=== PATIENT | male | born 1955 | race Caucasian/White ===

== ENCOUNTER 2018-12-15 06:33 | Day surgery (SDC) | payer BC ==
[2018-12-10 10:10] VITALS: BMI 37.5
[2018-12-15] MEDS ORDERED: ERYTHROMYCIN 0.5% OPHTHALMIC OINTMENT 3.5 GM TUBE ONE (07:10)
[2018-12-15] MEDS ORDERED: TETRACAINE 0.5% OPHTH SOLN 2 ML BOTTLE ONE (07:11)
[2018-12-15] MEDS ORDERED: LIDOCAINE 1%/EPI 1:100000 (20 ML MULTI DOSE VIAL) ONE (07:11)
[2018-12-15] MEDS ORDERED: BUPIVACAINE HCL/PF 0.5% (5MG/ML) 10 ML VIAL ONE (07:11)
[2018-12-15] MEDS ORDERED: POVIDONE-IODINE 5% OPHTHALMIC PREP 30 ML SOLUTION ONE (07:23)
[2018-12-15] MEDS ORDERED: MIDAZOLAM HCL 2 MG/2 ML SINGLE DOSE VIAL ONE (08:18)
[2018-12-15] MEDS ORDERED: PROPOFOL 20 ML ONE ×2 (08:29→08:32)
[2018-12-15] MEDS ORDERED: ceFAZolin SODIUM 1 GM VIAL ONE (08:39)
[2018-12-15] MEDS ORDERED: ONDANSETRON 4 MG/2 ML VIAL ONE (09:01)
[2018-12-15] MEDS ORDERED: DEXAMETHASONE SOD PHOSPHATE 4 MG/1 ML VIAL ONE (09:01)
[2018-12-15 10:25] VITALS: TEMP 98.2
[2018-12-15 10:40] VITALS: BP 120/74; PULSE 56
--- NOTE | 2018-12-15 13:31 | OP ---
DATE OF OPERATION: 12/15/2018 PREOPERATIVE DIAGNOSIS: Orbital tumor, left. POSTOPERATIVE DIAGNOSIS: Orbital tumor, left. PROCEDURE: Transconjunctival orbitotomy with excision of mass lesion, superotemporal fornix, left. SURGEON: Corie Weiss MD ANESTHESIA: Local with sedation. COMPLICATIONS: None. ESTIMATED BLOOD LOSS: Less than 1 mL. OPERATIVE REPORT: The patient was brought to the operating room, placed in the operating room table, vital signs were monitored by Anesthesia. Tetracaine was placed in both eyes. Timeout was performed. Intravenous sedation was administered and then a 50/50 mixture of 2% Xylocaine and 1:100,000 epinephrine and 0.5% Marcaine was injected subconjunctivally for a total of 1 mL in the superotemporal fornix overlying the mass. The patient was prepped and draped in the usual sterile fashion, exposing both eyes. The right eye was taped closed with a Steri-Strip. Speculum was placed in the left eye. An incision was made through conjunctiva and Tenon and the superotemporal fornix, more angling toward the lateral canthus, exposing the mass. The mass was then dissected free of overlying fibrous tissue and teased out of the orbit and removed in one whole piece of tissue and submitted for pathologic study. Hemostasis was meticulously obtained with Cabarrus needle and the wound was then closed in both Tenons and conjunctiva with 2 buried 7-0 Vicryl sutures in the superotemporal fornix. Erythromycin ointment was placed in the eye, the speculum was removed, and the patient was taken to recovery room in stable condition. CORIE WEISS M.D. [facility]/[id number]
--- NOTE | 2018-12-17 13:20 | PATH ---
Surgical Pathology Report Patient Name: TIGRE ERNANDEZ Med. Rec. #: [id number] /Age/Gender: 1955 (Age: 63) / M Account: [id number] Location: [facility] Taken: 12/15/2018 Received: 12/15/2018 Reported: 12/17/2018 Physicians: Stephen Sierra Specimen(s) Received MASS LEFT EYE Clinical History Mass left eye Final Diagnosis MASS, LEFT EYE, EXCISION: ADIPOSE TISSUE, COMPATIBLE WITH LIPOMA. Electronically Signed Pita Gurrola M.D. Gross Description Received in formalin, labeled, "mass, left eye" is a 1.8 x 1 x 0.3 cm portion of yellow-gr lobulated soft tissue. The specimen is inked black, sectioned and entirely submitted in one cassette. AE/12/16/2018 ebram/12/16/2018
== END 2018-12-15 10:44 | disposition home or self-care (01) ==
LOC: FASU 06:33
PROVIDERS: ATTEND Ophthalmology
PROC: 0NBQ0ZZ Excision of Left Orbit, Open Approach (ICD-10-PCS; principal; 2018-12-15 08:42)
DX: D31.62 Benign neoplasm of unspecified site of left orbit (principal)
CPT/HCPCS: 82962; 88304-TC; 94760

== ENCOUNTER 2019-06-18 22:45 | Emergency (ER) | payer BC ==
[2019-06-18 22:54] VITALS: BP 166/86; PULSE 104; TEMP 98.9; BMI 37.8
[2019-06-18] MEDS ORDERED: VANCOMYCIN 1 GM in D5W (PRE-DOCKED) 1,000 MG/250 ML IVPB ONE (22:55)
[2019-06-18] MEDS ORDERED: PIPERACILLIN/TAZOB 3.375 GM 3.375 GM in DEXTROSE 5%-WATER - 50 ML IVPB ONE (22:56)
--- NOTE | 2019-06-18 23:05 | PDOC ---
Documentation entered by Rosas Lopez SCRIBE, acting as scribe for Orlin Johnson MD. Orlin Johnson MD: This documentation has been prepared by the John waggoner Nirvannie, SCRIBE, under my direction and personally reviewed by me in its entirety. I confirm that the documentation accurately reflects all work, treatment, procedures, and medical decision making performed by me. History of Present Illness - General Chief Complaint: Wound Stated Complaint: CELLULITIS Time Seen by Provider: 06/18/19 22:47 History Source: Patient Exam Limitations: No Limitations - History of Present Illness Initial Comments: 06/18/19 23:02 HPI: The patient is a 63 year old male, with a significant past medical history of diabetes, hypertension, and hyperlipidemia, who presents to the emergency department with 4 days of a rash to the right hand and new onset hives to the back. As per patient, he initially went to urgent care 4 days ago for a rash to the right hand and wrist at which time he was prescribed antibiotics ( noncompliant secondary to pharmacy being closed). Patient notes to have gone to his PCP for a general physical examination at which time he was placed on Bactrim. Patient notes taking his first dosage 3 days ago and has been compliant since. He notes going to urgent care once again yesterday at which time the provider demarcated the rash and was advised to report to the ED if the rash extended outside the boundaries. Patient notes his rash has worsened minimally and he began to notice hives to his back and upper buttocks, prompting his arrival to the ED. He denies any changes in strength or sensation to the arm or hand. He denies any discharge from the rash. He denies any recent fevers, chills, headache or dizziness. He denies any recent nausea, vomit, diarrhea or constipation. He denies any recent chest pain or shortness of breath. He denies any recent dysuria, frequency, urgency or hematuria. PAST MEDICAL HISTORY: Diabetes, hypertension, hyperlipidemia. PAST SURGICAL HISTORY: no significant history FAMILY HISTORY: no pertinent history SOCIAL HISTORY: Pt lives with family and is employed. MEDICATIONS: reviewed ALLERGIES: As per nursing notes ROS: General: No fevers or chills, no weakness, no weight loss HEENT: No change in vision. No sore throat,. No ear pain CardioVascular: No chest pain or shortness of breath Respiratory:No cough, or wheezing. Gastrointestinal: no nausea, vomiting, diarrhea or constipation, No rectal bleeding Genitourinary: No dysuria, hematuria, or frequency Musculoskeletal: No joint or muscle pain or swelling Neurologic: No headache, vertigo, dizziness or loss of consciousness Psychiatric: nor depression Skin: +Rash to the right hand. No easy bruising Endocrine: no increased thirst or abnormal weight change Allergic: +Hives to the back. no latex allergy All other systems reviewed and normal Physical Exam: GENERAL: The patient is awake, alert, and fully oriented, in no acute distress. HEAD: Normal with no signs of trauma. EYES: Pupils equal, round and reactive to light, extraocular movements intact, sclera anicteric, conjunctiva clear. EXTREMITIES: Normal range of motion, no edema. NEUROLOGICAL: Normal speech, normal gait. PSYCH: Normal mood, normal affect. SKIN: +Mild swelling of the right wrist and hand with mild erythema on the dorsum of the hand and fingers. Hives to the back. Warm, Dry, normal turgor, lesions noted. Assessment and plan: This is a 63-year-old male who has history of type 2 diabetes who comes in complaining of cellulitis to his right hand and wrist. Patient was seen by his primary care doctor as well as in an urgent care center. Patient thinks it may be getting worse so he comes in for evaluation. Work-up initiated including CBC, comp, blood cultures and IV antibiotics including Vanco and Zosyn. Patient was started on Bactrim by his primary care doctor but now has what appears to be an allergic reaction to the Bactrim. 01:00 patient complaining that the itching is worse from the hives. On reevaluation the hives do not look significantly worse. However I will give some Solu-Medrol 125 IV push for the hives in addition to some Benadryl 06/19/19 01:02 Past History - Past Medical History Allergies/Adverse Reactions: Allergies Allergy/AdvReac Type Severity Reaction Status Date / Time sulfamethoxazole Allergy Verified 06/19/19 01:10 [From Bactrim] trimethoprim [From Bactrim] Allergy Verified 06/19/19 01:10 Home Medications: Ambulatory Orders Amphet Asp/Amphet/D-Amphet [Adderall 20 Mg Tablet] 20 mg PO BID PRN tablet Aspirin 81 mg PO DAILY 02/09/14 Zolpidem Tartrate [Ambien] 10 mg PO HS tablet 02/09/14 Atenolol [Tenormin -] 25 mg PO HS 12/10/18 Lorazepam [Ativan] 1 mg PO DAILY PRN 12/10/18 Losartan/Hydrochlorothiazide [Losartan-Hctz 100-12.5 mg Tab] 1 each PO DAILY Metformin HCl [Glucophage] 1,000 mg PO BID 12/10/18 Doxycycline Hyclate [Doryx] 200 mg PO BID #20 tablet. 06/18/19 Methylprednisolone [Medrol Dose Francisco] 4 mg PO ASDIR #21 tablet 06/19/19 Anemia: No Asthma: No Cancer: No Cardiac Disorders: No CVA: No COPD: No CHF: No Dementia: No Diabetes: Yes GI Disorders: No Disorders: No HTN: Yes Hypercholesterolemia: Yes Liver Disease: No Seizures: No Thyroid Disease: No - Psycho Social/Smoking Cessation Hx Smoking History: Unknown if ever smoked Have you smoked in the past 12 months: No Information on smoking cessation initiated: No Hx Alcohol Use: Yes (social) Drug/Substance Use Hx: No Substance Use Type: Alcohol Hx Substance Use Treatment: No *Physical Exam - Vital Signs Last Vital Signs Temp Pulse Resp BP Pulse Ox 98.9 F 104 H 18 166/86 98 06/18/19 22:49 06/18/19 22:49 06/18/19 22:49 06/18/19 22:49 06/18/19 22:49 ED Treatment Course - LABORATORY CBC & Chemistry Diagram: 06/18/19 22:55 06/18/19 22:55 Discharge - Discharge Information Problems reviewed: Yes Clinical Impression/Diagnosis: Cellulitis Qualifiers: Site of cellulitis: extremity Site of cellulitis of extremity: upper extremity Laterality: right Qualified Code(s): L03.113 - Cellulitis of right upper limb Condition: Stable Disposition: HOME - Admission No - Additional Discharge Information Prescriptions: Doxycycline Hyclate [Doryx] 200 mg PO BID #20 tablet. Methylprednisolone [Medrol Dose Francisco] 4 mg PO ASDIR #21 tablet - Follow up/Referral - Patient Discharge Instructions Additional Instructions: Take doxycycline 1 tablet twice a day for 10 days. Tylenol or Motrin as needed for pain. Bactrim 1 tablet as often as every 4-6 hours as needed for rash or itching. Return to the emergency department immediately with ANY new, persistent or worsening symptoms. Continue any medications as previously prescribed by your physician. You should follow up with your primary doctor as soon as possible regarding today's emergency department visit. . Please make sure your doctor reviews the results of your emergency evaluation. Thank you for coming to the Emergency Department today for your care. It was a pleasure to see you today. Please note that your evaluation is INCOMPLETE until you follow-up with your doctor. - Post Discharge Activity
[2019-06-18] MEDS ORDERED: PIPERACILLIN/TAZOBACTAM 3.375 GM VIAL IVPB ONE (23:06)
[2019-06-18] MEDS ORDERED: VANCOMYCIN 1,000 MG VIAL (RESTRICTED TO ID ONLY) ONE (23:06)
[2019-06-18 23:12] LABS: BASO % 0.5 % (0-2.0); EOS % 1.6 % (0-4.5); HEMATOCRIT 45.4 % (35.4-49); HEMOGLOBIN 15.1 GM/dl (11.7-16.9); LYMPH % 12.2 % (8-40); MCH 27.2 pg (25.7-33.7); MCHC 33.3 g/dl (32.0-35.9); MEAN CELL VOLUME 81.8 fl (80-96); MEAN PLT VOLUME 6.7 fl (7.5-11.1); MONO % 4.3 % (3.8-10.2); NEUT % 81.4 % (42.8-82.8); PLATELET COUNT 259 K/MM3 (134-434); RBC 5.55 M/mm3 (4.00-5.60); RDW 14.1 % (11.9-15.9); WHITE BLOOD COUNT 8.9 K/mm3 (4.0-10.8)
[2019-06-18 23:31] LABS: ALBUMIN 4.2 g/dl (3.4-5.0); BILIRUBIN,TOTAL 0.5 mg/dl (0.2-1); CALCIUM 8.9 mg/dl (8.5-10); CREATININE 0.9 mg/dl (0.55-1.3); POTASSIUM 3.3 mmol/L (3.5-5.1); TOT PROT 7.1 g/dl (6.4-8.2)
[2019-06-18] MEDS ORDERED: diphenhydrAMINE HCL 50 MG CAPSULE PO ONE (23:37)
[2019-06-18] MEDS ORDERED: diphenhydrAMINE HCL 25 MG CAPSULE (FP) PO ONE (23:48)
[2019-06-19] MEDS ORDERED: methylPREDNISolone NA SUCC 125 MG/2 ML VIAL IVPUSH ONE (00:57)
[2019-06-19] MEDS ORDERED: methylPREDNISolone NA SUCC 125 MG/2 ML VIAL ONE (01:02)
== END 2019-06-19 01:21 | disposition home or self-care (01) ==
LOC: FER 22:45
PROC: 3E03329 Introduction of Other Anti-infective into Peripheral Vein, Percutaneous Approach (ICD-10-PCS; principal; 2019-06-18)
PROC: 3E0333Z Introduction of Anti-inflammatory into Peripheral Vein, Percutaneous Approach (ICD-10-PCS; 2019-06-18)
DX: L03.113 Cellulitis of right upper limb (principal); I10 Essential (primary) hypertension; E11.9 Type 2 diabetes mellitus without complications; E78.5 Hyperlipidemia, unspecified; Z91.14 Patient's other noncompliance with medication regimen; Z88.2 Allergy status to sulfonamides; Z88.1 Allergy status to other antibiotic agents; Z79.84 Long term (current) use of oral hypoglycemic drugs
CPT/HCPCS: 36415; 80053; 85025; 87040; 99284-25

== ENCOUNTER 2021-08-01 14:53 | Emergency (ER) | payer BC ==
[2021-08-01] MEDS ORDERED: ASPIRIN 81 MG CHEWABLE TABLETS ONE ×2 (15:15→15:33)
[2021-08-01] MEDS ORDERED: oxyCODONE HCL 5 MG TABLET PO ONE (15:15)
[2021-08-01 15:21] VITALS: TEMP 98.7; BMI 38.2
[2021-08-01] MEDS ORDERED: oxyCODONE HCL 5 MG TABLET ONE (15:33)
[2021-08-01] MEDS ORDERED: ASPIRIN 81 MG CHEWABLE TABLETS PO ONE (15:45)
[2021-08-01 16:30] LABS: ALBUMIN 4.2 g/dl (3.4-5.0); BILIRUBIN,TOTAL 0.6 mg/dl (0.2-1); CALCIUM 8.9 mg/dl (8.5-10); CREATININE 0.8 mg/dl (0.55-1.3); TOT PROT 6.8 g/dl (6.4-8.2)
[2021-08-01] MEDS ORDERED: POTASSIUM CHLORIDE TABS 20 MEQ TABLET.ER (FP) PO ONE ×2 (17:22→17:30)
[2021-08-01 18:12] LABS: BASO % 0.7 % (0-2.0); EOS % 1.5 % (0-4.5); HEMATOCRIT 45.8 % (35.4-49); HEMOGLOBIN 15.6 GM/dL (11.7-16.9); LYMPH % 11.6 % (8-40); MCH 27.2 pg (25.7-33.7); MEAN CELL VOLUME 80.1 fl (80-96); MEAN PLT VOLUME 6.8 fl (7.5-11.1); MONO % 5.3 % (3.8-10.2); NEUT % 80.9 % (42.8-82.8); PLATELET COUNT 221 10^3/uL (134-434); RBC 5.72 M/mm3 (4.00-5.60); RDW 14.4 % (11.9-15.9); WHITE BLOOD COUNT 9.1 K/mm3 (4.0-10.0)
[2021-08-01] MEDS ORDERED: AMOX TR/POT CLAV 875MG/125MG TABLETS (FP) PO ONE (18:26)
[2021-08-01] MEDS ORDERED: AMOX TR/POT CLAV 875MG/125MG TABLETS (FP) ONE (18:31)
[2021-08-01 19:19] VITALS: BP 159/80; PULSE 87
[2021-08-01] MEDS ORDERED: AMOX TR/POT CLAV 875MG/125MG TABLETS (FP) PO SCH (22:00)
== END 2021-08-01 19:19 | disposition home or self-care (01) ==
LOC: FER 14:53
DX: R07.9 Chest pain, unspecified (principal); K08.89 Other specified disorders of teeth and supporting structures
CPT/HCPCS: 36415; 71046-TC-FY; 80053; 84484; 85025; 93005; 99285-25